=== PATIENT | male | born 1960 ===

== ENCOUNTER → 2023-08-27 | Outpatient (CLI) | payer BC ==
[~2023-08-27] MED LIST: HYDACE5 PO; IBUP800 PO
[2023-08-28 14:23] LABS: Creatinine, Urine Random 91.8 mg/dL (27.00-270.00); Microalb/Creat Ratio UR, Rand 13.943 mg/g (0.000-30.000); Microalbumin, Random Urine 12.8 mg/L (0.000-20.000)
== END ==
LOC: LAB SHORT 12:29
PROVIDERS: Physician Assistant
DX: E11.59 Type 2 diabetes mellitus with other circulatory complications (principal)
CPT/HCPCS: 82043; 82570